=== PATIENT | male | born 1995 | race Caucasian/White ===

== ENCOUNTER 2024-09-19 10:26 | Outpatient (AMB) | payer BC, SELFPAY ==
--- NOTE | 2024-09-19 10:27 | A.OFFPC_ITS ---
Vital Signs 09/19/24 10:30 Height 5 ft 9 in Weight 193 lb BMI 28.5 BP 134/82 Respiration 14 Pulse 72 Pulse Source Pulse Oximeter Temp 97.9 F Temp Source Temporal Artery Scan Pulse Oximetry (%) 99 Oxygen Delivery Method Room Air Intake Visit Reasons: Establish Care Wall Attendant Required: No Accompanied by: Self / Same As Patient Allergies No Known Allergies Allergy (Unverified 09/19/24 10:48) Medication List - Last Reconciled 09/19/24 by Magaly Reynolds PA-C No Known Home Meds Tobacco use date assessed: 09/19/24 Dental Screening Dental Screen Date: 09/19/24 Did you have a dental visit in the last 12 months?: Yes Did you have a dental problem in the last 6 months where you did not have access to dental care?: No Was dental information given to patient?: Patient has dentist HPI Establish Care HPI0 Details The patient is a 29-year-old male presenting to establish care with a new primary care provider and would like to discuss bilateral knee pain. The p atient reports experiencing bilateral knee pain from a young age, which worsens when climbing stairs, presenting as a burning sensation. 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 He recalls previous imaging in high school with a contusion diagnosis but denies any traumas, swelling, or sounds in the knees. In addition to knee symptoms, the patient feels constantly fatigued despite variable sleep duration over the past year. He has not engaged in recent blood work. The patient has a long-standing history of anxiety linked to childhood experiences of bullying, which he self-manages with marijuana edibles to avoid side effects experienced with previous medications. 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 - Family: with a and a 1 3-year-old child. - Tobacco: Non-smoker. - Substance Use: Uses marijuana edibles for anxiety management. - Stressors: Managing a at home and long-standing anxiety due to childhood bullying. [facility] Medical History (Updated 09/19/24 @ 11:09 by Maglay Reynolds PA-C) Overweight with body mass index (BMI) of 28 to 28.9 in adult Anxiety Fatigue Establishing care with new doctor, encounter for Bilateral knee pain Family History Father No problems noted. Mother No problems noted. Social History Housing: House Alcohol intake: current Alcohol intake frequency: holidays/special occasions only Patient Tobacco Use Status: Never used Tobacco Substance Use Type: Marijuana service: No Current occupational status: employed Cognitive needs: No Hearing needs: No Vision needs: No Questionnaire PHQ-9 Over the last 2 weeks, how often have you been bothered by any of the following problems? 1. Little interest or pleasure in doing things: not at all 2. Feeling down, depressed, or hopeless: not at all 3. Trouble falling or staying asleep, or sleeping too much: not at all 4. Feeling tired or having little energy: not at all 5. Poor appetite or overeating: not at all 6. Feeling bad about yourself - or that you are a failure or have let yourself or your family down: not at all 7. Trouble concentrating on things, such as reading the newspaper or watching television: not at all 8. Moving or speaking so slowly that other people could have noticed. Or the opposite - being so fidgety or restless that you have been moving around a lot more than usual: not at all 9. Thoughts that you would be better off or of hurting yourself in some w ay: not at all Total score: 0 Depression Screening Interpretation: Negative Depression Screening Done: Yes 77517 - PHQ-9 Billing: Yes Source: Developed by Drs. Jasmeet Lemons, Yolette Gibbs, Constantine Dougherty and colleagues, with an educational denise from [employer]. Thrive Questionnaire Date Thrive assessed: 09/19/24 I am a: Patient What is your living situation today?: I have a steady place to live Within the past 12 months, did the food you bought not last and you didn't have the money to get more?: Never true Within the past 12 months, did you worry whether your food would run out before you got money to buy more?: Never true Do you have trouble paying for medicines?: No Do you have trouble getting transportation to medical appointments?: No Do you have trouble paying your heating and electricity bill?: No Do you have trouble taking care of your child, family member or friend?: No Do you have trouble with day-to-day activities such as bathing, preparing meals, shopping, managing finances, etc.?: No Are you currently unemployed and looking for a job?: No Are you interested in more education?: No Please select the resources that you would like help with: None THRIVE Score: 0 AUDIT C Alcohol Use Questionnaire (AUDIT-C) 1. How often do you have a drink containing alcohol?: Monthly or less 2. How many drinks containing alcohol do you have on a typical day when you are drinking?: 1 or 2 3. How often do you have six or more drinks on one occasion?: Never Total Score: 1 Score Reviewed/Action Taken: No GAETANO-7 AMB Questionnaire GAETANO-7 Date GAETANO - 7 assessed: 09/19/24 Feeling nervous, anxious, or on edge: 3 = Nearly every day Not being able to stop or control worryin = Several days Worrying too much about different things: 3 = Nearly every day Trouble relaxin = More than half the days Being so restless that it is hard to sit still: 0 = Not at all Becoming easily annoyed or irritable: 3 = Nearly every day Feeling afraid as if something awful might happen: 0 = Not at all Total GAETANO-7 score (0-4 normal; 5-9 mild; 10-14 moderate; 15-21 severe): 12 Source: Developed by Drs. Jasmeet Lemons, Yolette Gibbs, Constantine Dougherty and colleagues, with an educational denise from [employer]. GAETANO-7 Assessment Billing GAETANO-7 Assessment Tool: GAETANO-7 Assessment 21955 Review of Systems Const Details: - Musculoskeletal: Reports bilateral knee pain with burning and sharp sensations, no swelling, redness, or crackling noises reported. - General: Reports fatigue and persistent tiredness. - Psychological: Reports anxiety; denies suicidal ideation. - Gastrointestinal: Denies chronic abdominal pain, black or bloody stools, and significant weight changes. Physical exam (Primary Care) Vital Signs: Last Vital Signs Temp 97.9 F 09/19/24 10:30 Pulse 72 09/19/24 10:30 Resp 14 09/19/24 10:30 BP 134/82 09/19/24 10:30 Pulse Ox 99 09/19/24 10:30 Oxygen Delivery Method Room Air 09/19/24 10:30 Care Plan Goal for BP management: <140/90 at Goal BMI result Body Mass Index 28.5 BMI Assessment/Plan discussion: High BMI High, discussed plan: lifestyle, weight reduction, dietary, physical activity and alcohol moderation Tobacco/Smoking Status: Tobacco use Status Tobacco use date assessed 09/19/24 09/19/24 10:30 Patient Tobacco Use Status Never used Tobacco 09/19/24 10:33 PHQ-9: PHQ-9 Score PHQ-9: Total score 0 09/19/24 10:30 Depression Screening Interpretation: Negative Thrive Assessment: Date of Thrive Assessment Date Thrive assessed 09/19/24 09/19/24 10:30 Const Other: Appearance: Alert. Oriented X3. No acute distress. Head: Normal external exam. Normocephalic. Atraumatic. Eyes: Pupils are equal, round, and reactive to light. Extraocular movements intact. Conjunctiva and sclera normal. Eyelids normal. Ears: External auditory canal normal. Tympanic membranes normal. Throat: Pharynx normal. Uvula midline. Moist mucous membranes. Neck: Normal inspection. Neck supple. Full range of motion. No adenopathy. Thyroid Normal. No meningeal signs. No neck mass noted. Cardiovascular: Normal heart rate and rhythm. Heart sound normal. No murmurs noted. Pulses normal throughout. Respiratory: No respiratory distress. Painless inspiration. Breath sounds normal. No wheezes/rales/rhonchi noted. Chest nontender. No accessory muscle usage noted or decreased air movement noted. Abdomen: Soft and nontender. Bowel sounds normal in all 4 quadrants. No distention noted. No organomegaly noted. No visible injury noted. Back: No costovertebral angle tenderness. Full range of motion noted. Skin: Skin warm and dry. Normal skin color. Normal skin turgor. No rashes/les ions/lacerations noted. Extremities: No lower extremity edema. Extremities exhibit normal range of motion. Patient reports bilateral knee pain with sharp pains, especially when walking upstairs. No crackling or noises reported in the knees. Neuro: Oriented X 3. No motor deficit. No sensory deficit. Reflexes normal. Patient reports feeling fatigued and tired all the time, regardless of sleep. Reports anxiety, but no current medication. No thoughts of self-harm. Coding Level of Care Code New Pt Level 4 (54295) Complex EM visit Add On G2211 Diagnoses Establishing care with new doctor, encounter for Z76.89 Bilateral knee pain M25.561; M25.562 Fatigue R53.83 Anxiety F41.9 Overweight with body mass index (BMI) of 28 to 28.9 in adult E66.3; Z68.28 Additional Codes PHQ-9 - 80011 - PHQ-9 Billing: Yes ([id number]) GAETANO-7 Assessment Billing - GAETANO-7 Assessment Tool: GAETANO-7 Assessment 05015 ([id number]) Assessment & Plan Assessment & Plan (1) Establishing care with new doctor, encounter for: Code(s): Z76.89 - Persons encountering health services in other specified circumstances Category: Medical (2) Bilateral knee pain: Code(s): M25.561 - Pain in right knee; M25.562 - Pain in left knee Category: Medical Plan: Bilateral knee x-rays are planned to assist in diagnosis, accompanied by a possible orthopedic referral. Meloxicam is prescribed for inflammation management. (3) Fatigue: Code(s): R53.83 - Other fatigue Category: Medical Plan: Comprehensive blood work is ordered to evaluate for metabolic or nutritional imbalances that might explain fatigue. (4) Anxiety: Code(s): F41.9 - Anxiety disorder, unspecified Category: Medical Plan: Referral to psychiatry is made for evaluating medication options and a continued focus on therapy allows for comprehensive management. (5) Overweight with body mass index (BMI) of 28 to 28.9 in adult: Code(s): E66.3 - Overweight; Z68.28 - Body mass index [BMI] 28.0-28.9, adult Category: Medical Plan: Patient to improve diet and exercise regimen. Condition is chronic and stable will continue to monitor. Plan Plan Patient was informed and verbally consented to the use of an ambient scribe for clinic note documentation during this visit. 1. Knee Pain Bilateral knee x-rays are planned to assist in diagnosis, accompanied by a possible orthopedic referral. Meloxicam is prescribed for inflammation management. 2. Fatigue Comprehensive blood work is ordered to evaluate for metabolic or nutritional imbalances that might explain fatigue. 3. Anxiety Referral to psychiatry is made for evaluating medication options and a continued focus on therapy allows for comprehensive management. I discussed with the patient the concerns regarding his knee pain and the potential for inflammation as indicated by his description of symptoms. We agreed on obtaining knee X-rays and considering further referral based on those findings. For his fatigue, a full blood workup including thyroid and testosterone levels was ordered to rule out metabolic or nutritional deficiencies. Regarding anxiety, I proposed referral to psychiatry for a more comprehensive evaluation of treatment options, especially given his concern about side effects from past medications. I advised the patient of the potential delay in obtaining psychiatric services and reiterated the importance of continued therapy. We discussed the use of meloxicam for inflammation and emphasized the need for fasting prior to blood work. Regular follow-up was advis ed to monitor symptoms and evaluate test outcomes. Orders: Orders XR Knee Javier 4V Today M25.561 - Pain in right knee, M25.562 - Pain in left knee, Z76.89 - Persons encountering health services in other specified circumstances C Reactive Protein Today Z00.00 - Encounter for general adult medical examination without abnormal findings Hemoglobin A1c Today Z00.00 - Encounter for general adult medical examination without abnormal findings PSA,Total (Free>4and<10) Today Z00.00 - Encounter for general adult medical examination without abnormal findings TSH reflex Free T4 Today Z00.00 - Encounter for general adult medical examination without abnormal findings Magnesium Today Z00.00 - Encounter for general adult medical examination without abnormal findings DHEA Sulfate Today Z00.00 - Encounter for general adult medical examination without abnormal findings Complete Blood Count Auto Diff Today Z00.00 - Encounter for general adult medical examination without abnormal findings Comprehensive Mears. Panel Fast Today Z00.00 - Encounter for general adult medical examination without abnormal findings Lipid Panel Today Z00.00 - Encounter for general adult medical examination without abnormal findings Liver Panel Today Z00.00 - Encounter for general adult medical examination without abnormal findings Vitamin B12 and Folate Today Z00.00 - Encounter for general adult medical examination without abnormal findings Vitamin D 25-OH Total Today Z00.00 - Encounter for general adult medical examination without abnormal findings Testosterone, Total Today Z00.00 - Encounter for general adult medical examination without abnormal findings Testosterone, Free/Total Today Z00.00 - Encounter for general adult medical ex amination without abnormal findings Dihydrotestosterone Today Z00.00 - Encounter for general adult medical examination without abnormal findings Referrals Psychiatry Referral F32.A - Depression, unspecified Medications: New meloxicam 15 mg PO DAILY 60 tabs 1RF Patient Instructions: - Get X-ray of both knees as advised today. - Schedule and complete fasting blood work as soon as possible. - Take meloxicam daily as prescribed for knee pain. - Wait for the office call for test results and follow-ups. - Contact the office if you experience worsening pain or any new symptoms. - Continue current therapy and await appointment with psychiatry. - Visit or call us for any acute health concerns.
[2024-09-19 10:30] VITALS: BP 134/82; PULSE 72; RESP 14; TEMP 36.6; O2SAT 99; BMI 28.5
== END 2024-09-19 10:56 | disposition home or self-care (01) ==
LOC: HO.HMCSH 10:26
PROVIDERS: PCP Physician Assistant Medical; Visit Provider Physician Assistant Medical
DX: Z76.89 Persons encountering health services in other specified circumstances (principal); M25.561 Pain in right knee; M25.562 Pain in left knee; R53.83 Other fatigue; F41.9 Anxiety disorder, unspecified; E66.3 Overweight; Z68.28 Body mass index [BMI] 28.0-28.9, adult

== ENCOUNTER 2024-09-19 10:26 | Outpatient (REF) | payer BC, SELFPAY ==
--- NOTE | ~2024-09-19 | XR_ITS ---
XR KNEE JAVIER 3V HISTORY: Bilateral knee pain. COMPARISON: None. TECHNIQUE: AP view bilateral knees standing, lateral and oblique views bilateral knees. FINDINGS: RIGHT KNEE: No fracture, dislocation, or suspicious bone lesion. Joint spaces are normal in all 3 compartments. No evidence of joint effusion. Soft tissues appear normal. LEFT KNEE: No fracture, dislocation, or suspicious bone lesion. Joint spaces are normal in all 3 compartments. No evidence of joint effusion. Soft tissues appear normal. XR/XR Knee Javier 4V IMPRESSION: RIGHT KNEE: 1. Normal right knee. LEFT KNEE: 1. Normal left knee. Electronically signed by: Dav Lynn MD 09/19/2024 01:23 PM EDT
== END 2024-09-19 10:27 | disposition home or self-care (01) ==
LOC: HO.HMGCX 10:26
PROVIDERS: PCP Physician Assistant Medical; Visit Provider Physician Assistant Medical
DX: Z76.89 Persons encountering health services in other specified circumstances (principal); M25.561 Pain in right knee; M25.562 Pain in left knee; R53.83 Other fatigue; F41.9 Anxiety disorder, unspecified; E66.3 Overweight; Z68.28 Body mass index [BMI] 28.0-28.9, adult
CPT/HCPCS: 73564; 96127

== ENCOUNTER → 2024-09-19 11:15 | Outpatient (BNV) | payer BC, SELFPAY | PROVIDERS: PCP Physician Assistant Medical; Visit Provider Radiology Diagnostic Radiology | DX: M17.0 Bilateral primary osteoarthritis of knee (principal) | CPT/HCPCS: 73564 ==

== ENCOUNTER 2024-12-22 08:23 | Outpatient (AMB) | payer BC, SELFPAY ==
[2024-12-22 08:35] VITALS: BMI 28.5
--- NOTE | 2024-12-22 08:35 | MHC.OFFVIS ---
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 X-rays were obtained and he was referred to orthopedics by his PCP. Patient reports that he has had pain ongoing for quite some time now. He states that he has had pain as along as he can remember. Increased pain with climbing stairs , and staying in certain positions for prolonged periods of time. His pain is described as a sharp pain. The pain that he feels is temporary, it only last for a few minutes at a time. Denies previous treatments or bracing. 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 He denies specific injury states he has had pain that has been off and on since he was a teenager. He states he did play sports as a child and had some discomfort with his knee pain but did not have any intervention no treatment such as physical therapy. 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 He denies any catching or locking symptoms. No instability. [facility] Medical History (Updated 12/22/24 @ 08:53 by Go Ayala PA-C) Overweight with body mass index (BMI) of 28 to 28.9 in adult Anxiety Fatigue Establishing care with new doctor, encounter for Bilateral knee pain Surgical History (Updated 12/22/24 @ 08:39 by Esther Smith CMA) S/P pilonidal cyst excision (~2019) Family History Father No problems noted. Mother No problems noted. Social History Housing: House Alcohol intake: current Alcohol intake frequency: holidays/special occasions only Patient Tobacco Use Status: Never used Tobacco Substance Use Type: Marijuana service: No Current occupational status: employed Cognitive needs: No Hearing needs: No Vision needs: No Review of Systems Const Reports as per HPI Physical Exam Vital Signs: BMI result Body Mass Index 28.5 Const General: cooperative and no acute distress Orientation/consciousness: patient oriented x3 Resp Effort & Inspection: normal respiratory effort and able to speak in complete sentences Cardio Peripheral pulses: Peripheral pulses 2+ throughout Neuro General: patient oriented x3 Extrem Other: Bilateral knees normal to inspection. No erythema or joint effusion present he has full range of motion with crepitus laterally. No significant tenderness to palpation. Negative patellar grind. Calf is supple and nontender neurovascularly intact. Results Reviewed Results Reviewed: X-rays of bilateral knees obtained in the office today negative for any acute or chronic abnormalities Assessment & Plan Assessment & Plan (1) Chronic patellofemoral pain of both knees: Code(s): M25.561 - Pain in right knee; M25.562 - Pain in left knee; G89.29 - Other chronic pain Category: Medical Plan: We discussed options today which includes physical therapy and modification of activity. An order was placed for physical therapy and he will contact the facility to make an appointment. He was also fit for bilateral Genumed knee braces. I discussed anti-inflammatory use for occasional flare-ups. If symptoms persist or worsen he will contact our office otherwise follow up as needed. Orders: Orders XR Knee Javier 1or 2V Today M25.561 - Pain in right knee, M25.562 - Pain in left knee PT Evaluation and Treatment Today G89.29 - Other chronic pain, M25.561 - Pain in right knee, M25.562 - Pain in left knee Coding Level of Care Code New Pt Level 3 (42028) Complex EM visit Add On G2211 Diagnoses Chronic patellofemoral pain of both knees M25.561; M25.562; G89.29
--- OUTSIDE RECORDS SUMMARY | 2024-12-22 08:49 | XMS_ITS | Clinical Summary ---
Author Organization [facility] Address [address] [place] [id number] Phone Care Team Providers Care Barrel Assembler Name Role Phone Unavailable Primary Care Provider Unavailabl e Immunizations Immunization Administration Dates Next Due Tdap 10/19/2005 Family History Relation Name Status Comments Brother 1 Alive Brother: Alive and well, Alive and well Brother 2 Alive Brother: Alive and well, Alive and well Father Alive Father: Alive a nd well Mother Alive Mother: Alive a nd well Social History Tobacco Use Types Packs/Day Years Used Date Smoking Tobacco: Never Assessed Sex and Gender Information Value Date Recorded Sex Assigned at Not on file Legal Sex Male 4:26 PM EDT Gender Identity Not on file Sexual Orientation Not on file Plan of Treatment Health Maintenance Due Date Last Done Comments MMR Vaccines (1 of 1 - Stand darien series) 1994 Varicella Vaccines (1 of 2 - 13+ 2-dose series) 2006 Hepatitis B Vaccines (1 of 3 - 19+ 3-dose series) 02/17/2012 DTaP,Tdap,and Td Vaccines (2 - Td or Tdap) 10/20/2015 10/19/2005 HPV Vaccines (1 - 3-dose SCD M series) 02/17/2020 COVID-19 Vaccine ( - 2023-2 5 season) 2023 Influenza Vaccines (#1) 2024 HIB Vaccines Aged Out No longer eligi ble based on patient's age to complete this topic Hepatitis A Vaccines Aged Out No long er eligible based on patient's age to complete this topic IPV Vaccines Aged Out No longer eligi ble based on patient's age to complete this topic Men B Vaccine Aged Out No longer elig ible based on patient's age to complete this topic Meningococcal Vaccine Aged Out No monse montse eligible based on patient's age to complete this topic Pneumococcal Vaccine Aged Out No long er eligible based on patient's age to complete this topic
== END 2024-12-22 09:02 | disposition home or self-care (01) ==
LOC: HO.HOS 08:24
PROVIDERS: PCP Physician Assistant Medical; Visit Provider Physician Assistant
DX: M25.561 Pain in right knee (principal); M25.562 Pain in left knee; G89.29 Other chronic pain
CPT/HCPCS: 99203

== ENCOUNTER → 2024-12-22 08:25 | Outpatient (BNV) | payer BC, SELFPAY | PROVIDERS: Visit Provider Radiology Diagnostic Radiology | DX: M25.561 Pain in right knee (principal); M25.562 Pain in left knee | CPT/HCPCS: 73560 ==

== ENCOUNTER 2024-12-22 11:26 | Outpatient (REF) | payer BC, SELFPAY ==
--- NOTE | ~2024-12-22 | XR_ITS ---
XR KNEE JAVIER 1V HISTORY: Right knee pain. COMPARISON: 09/19/2024. TECHNIQUE: [place] view of each knee. FINDINGS: RIGHT KNEE: No fracture, dislocation, or suspicious bone lesion. Patellofemoral alignment is normal. Normal patellar alignment. No abnormal patellar tilt. Soft tissues appear normal. LEFT KNEE: No fracture, dislocation, or suspicious bone lesion. Patellofemoral alignment is normal. Normal patellar alignment. No abnormal patellar tilt. Soft tissues appear normal. XR/XR Knee Javier 1or 2V IMPRESSION: 1. Normal bilateral patellofemoral views. Electronically signed by: Dav Lynn MD 12/22/2024 09:21 AM EDT
--- OUTSIDE RECORDS SUMMARY | 2024-12-23 12:23 | XMS_ITS | Encounter Summary ---
Author Organization [facility] Address [address] [place] [id number] Phone Care Team Providers Care Spray Pilot Name Role Phone Juhi Gamble NP Primary Care Provider Shelbi riggins Encounter Details Date Type Department Care Team (Late st Contact Info) Description 12/14/2016 Conversion Encounter [facility] - [address] [id number] Social History Tobacco Use Types Packs/Day Years Used Date Smoking Tobacco: Never Assessed Sex and Gender Information Value Date Recorded Sex Assigned at Not on file Legal Sex Male 4:26 PM EDT Gender Identity Not on file Sexual Orientation Not on file documented as of this encounter Plan of Treatment Not on file documented as of this encounter Visit Diagnoses Not on filedocumented in this encounter Care Teams Spray Pilot Relationship Specialty Start Date End Date Juhi Gamble NP PCP - General 12/08/16 08/08/22 documented as of this encounter
--- OUTSIDE RECORDS SUMMARY | 2024-12-23 12:23 | XMS_ITS | Clinical Summary ---
Author Organization [facility] Address [address] [place] [id number] Phone Care Team Providers Care Flight Nurse Name Role Phone Unavailable Primary Care Provider [...]
== END 2024-12-22 11:27 | disposition home or self-care (01) ==
LOC: HO.HOSX 11:26
PROVIDERS: Visit Provider Physician Assistant
DX: M25.561 Pain in right knee (principal); M25.562 Pain in left knee; G89.29 Other chronic pain
CPT/HCPCS: 73560

== ENCOUNTER 2025-03-24 09:15 | Outpatient (AMB) | payer BC, SELFPAY ==
--- NOTE | 2025-03-24 09:19 | MHC.PC.OV ---
Vital Signs 03/24/25 09:21 Height 5 ft 9 in Weight 197 lb 0.2 oz BMI 29.1 BP 114/57 L Blood Pressure Location Rt brachial Pulse 70 Pulse Source Pulse Oximeter Temp 98.1 F Pulse Oximetry (%) 99 Intake Visit Reasons: 6 month f/u Intake Note: Not sleeping well wakes up because arms are falling a sleep so he doesn't fall asleep until the numbness goes away going on for about 6 months. Allergies No Known Allergies Allergy (Verified 03/24/25 09:42) Medication List - Last Reconciled 03/24/25 by Magaly Reynolds PA-C No Known Home Meds Tobacco use date assessed: 09/19/24 Dental Screening Dental Screen Date: 03/24/25 Did you have a dental visit in the last 12 months?: Yes Did you have a dental problem in the last 6 months where you did not have access to dental care?: No Was dental information given to patient?: Patient has dentist HPI HPI Comments History of Present Illness Details History of Present Illness The patient is a 30 year old individual presenting for a six-month follow-up, which was converted into an annual physical examination. The patient's last physical was several years ago. The patient has a history of chronic patellofemoral pain in both knees, for which the patient saw an orthopedist. X-rays showed that the pain is caused by the patient's bones rubbing together. The patient manages this with knee braces worn at work or during long walks and uses anti-inflammatory medications as needed. The patient reports new symptoms of waking up with both arms falling asleep, which has been occurring for at least six months. The patient reports ongoing fatigue and always feels tired, even upon waking, believing it may be due to poor sleep quality. For anxiety, the patient sees a therapist once or twice a month. The patient previously tried medications but stopped due to side effects and reports that smoking a small amount of cannabis is helpful. Past surgical history includes LASIK surgery on both eyes a couple of years ago. The patient reports no known family history of colon or breast cancer. Social History - Employment: The patient works at the [employer], a job that requires being on the patient's feet. - Substance Use: The patient reports smoking cannabis [facility] Medical History (Updated 03/24/25 @ 10:01 by Magaly Reynolds PA-C) Healthcare maintenance Annual physical exam Carpal tunnel syndrome, bilateral Sleep apnea Overweight with body mass index (BMI) of 28 to 28.9 in adult Anxiety Fatigue Establishing care with new doctor, encounter for Bilateral knee pain Surgical History Hx of LASIK S/P pilonidal cyst excision (~2020) Family History Father No problems noted. Mother No problems noted. Social History Housing: House Alcohol intake: current Alcohol intake frequency: holidays/special occasions only Patient Tobacco Use Status: Never used Tobacco Substance Use Type: Marijuana service: No Current occupational status: employed Cognitive needs: No Hearing needs: No Vision needs: No Questionnaire PHQ-9 Over the last 2 weeks, how often have you been bothered by any of the following problems? 1. Little interest or pleasure in doing things: not at all 2. Feeling down, depressed, or hopeless: not at all 3. Trouble falling or staying asleep, or sleeping too much: not at all 4. Feeling tired or having little energy: not at all 5. Poor appetite or overeating: not at all 6. Feeling bad about yourself - or that you are a failure or have let yourself or your family down: not at all 7. Trouble concentrating on things, such as reading the newspaper or watching television: not at all 8. Moving or speaking so slowly that other people could have noticed. Or the opposite - being so fidgety or restless that you have been moving around a lot more than usual: not at all 9. Thoughts that you would be better off or of hurting yourself in some way: not at all Total score: 0 Depression Screening Interpretation: Negative Depression Screening Done: Yes 05121 - PHQ-9 Billing: Yes Source: Developed by Drs. Jasmeet Lemons, Yolette Gibbs, Constantine Dougherty and colleagues, with an educational denise from [employer]. Thrive Questionnaire Date Thrive assessed: 09/19/24 I am a: Patient What is your living situation today?: I have a steady place to live Within the past 12 months, did the food you bought not last and you didn't have the money to get more?: Never true Within the past 12 months, did you worry whether your food would run out before you got money to buy more?: Never true Do you have trouble paying for medicines?: No Do you have trouble getting transportation to medical appointments?: No Do you have trouble paying your heating and electricity bill?: No Do you have trouble taking care of your child, family member or friend?: No Do you have trouble with day-to-day activities such as bathing, preparing meals, shopping, managing finances, etc.?: No Are you currently unemployed and looking for a job?: No Are you interested in more education?: No Please select the resources that you would like help with: None THRIVE Score: 0 AUDIT C Alcohol Use Questionnaire (AUDIT-C) 1. How often do you have a drink containing alcohol?: Monthly or less 2. How many drinks containing alcohol do you have on a typical day when you are drinking?: 1 or 2 3. How often do you have six or more drinks on one occasion?: Never Total Score: 1 Score Reviewed/Action Taken: No GAETANO-7 AMB Questionnaire GAETANO-7 Date GAETANO - 7 assessed: 09/19/24 Feeling nervous, anxious, or on edge: 3 = Nearly every day Not being able to stop or control worryin = Several days Worrying too much about different things: 3 = Nearly every day Trouble relaxin = More than half the days Being so restless that it is hard to sit still: 0 = Not at all Becoming easily annoyed or irritable: 3 = Nearly every day Feeling afraid as if something awful might happen: 0 = Not at all Total GAETANO-7 score (0-4 normal; 5-9 mild; 10-14 moderate; 15-21 severe): 12 Source: Developed by Drs. Jasmeet Lemons, Yolette Gibbs, Constantine Dougherty and colleagues, with an educational denise from [employer]. GAETANO-7 Assessment Billing GAETANO-7 Assessment Tool: GAETANO-7 Assessment 92682 Review of Systems Narrative Review of Systems - Constitutional: Reports persistent fatigue. - Neurological: Reports waking from sleep with bilateral hand numbness for the past six months. - Musculoskeletal: Reports chronic bilateral knee pain. - Psychiatric: Reports anxiety, which is managed with therapy. - Cardiovascular: Denies chest pain or shortness of breath on exertion or when lying flat. - Gastrointestinal: Denies bloody stools, unintentional weight loss, and persistent abdominal pain. Reports normal bowel movements. - HEENT: Denies trouble hearing. Denies trouble with vision, noting prior LASIK surgery. - Genitourinary: Denies flank pain. Const All systems reviewed & are unremarkable except as noted in HPI and below Physical exam (Primary Care) Vital Signs: Last Vital Signs Temp 98.1 F 03/24/25 09:21 Pulse 70 03/24/25 09:21 BP 114/57 L 03/24/25 09:21 Pulse Ox 99 03/24/25 09:21 Care Plan Goal for BP management: <140/90 at Goal BMI result Body Mass Index 29.1 BMI Assessment/Plan discussion: High BMI High, discussed plan: lifestyle, weight reduction, dietary, physical activity, alcohol moderation and other Tobacco/Smoking Status: Tobacco use Status Tobacco use date assessed 09/19/24 03/24/25 09:29 Patient Tobacco Use Status Never used Tobacco 03/24/25 09:29 PHQ-9: PHQ-9 Score PHQ-9: Total score 0 03/24/25 09:29 Depression Screening Interpretation: Negative Thrive Assessment: Date of Thrive Assessment Date Thrive assessed 09/19/24 03/24/25 09:29 Narrative Physical Exam Appearance: Alert. Oriented X3. No acute distress. Head: Normal external exam. Normocephalic. Atraumatic. Eyes: Pupils are equal, round, and reactive to light. Extraocular movements intact. Conjunctiva and sclera normal. Eyelids normal. Ears: External auditory canal normal. Tympanic membranes normal. Throat: Pharynx normal. Uvula midline. Moist mucous membranes. Neck: Normal inspection. Neck supple. Full range of motion. No adenopathy. Thyroid Normal. No meningeal signs. No neck mass noted. Cardiovascular: Normal heart rate and rhythm. Heart sound normal. No murmurs noted. Pulses normal throughout. Respiratory: No respiratory distress. Painless inspiration. Breath sounds normal. No wheezes/rales/rhonchi noted. Chest nontender. No accessory muscle usage noted or decreased air movement noted. Abdomen: Soft and nontender. Bowel sounds normal in all 4 quadrants. No distention noted. No organomegaly noted. No visible injury noted. Back: No costovertebral angle tenderness. Full range of motion noted. Skin: Skin warm and dry. Normal skin color. Normal skin turgor. No rashes/lesions/lacerations noted. Extremities: No lower extremity edema. Extremities exhibit normal range of motion. Extremities nontender. Neuro: Oriented X 3. No motor deficit. No sensory deficit. Reflexes normal. Positive Phalen's test and Tinel's sign indicating possible carpal tunnel syndrome. Office Procedures Flu Questionnaire Does the patient have a severe egg allergy?: No Does the patient have severe life threatening allergies?: No Does the patient have a fever or illness today?: No Has the patient ever had Guillain-[place] Syndrome?: No Has the patient ever had any past reaction to a flu shot?: No Immunizations Fluarix [id number] (PF) 45 mcg (15 mcg x 3)/0.5 mL IM syringe Performing Provider: Magaly Reynolds PA-C [facility] Documented (not given) by: Dori Brown on 03/24/25 09:30 Dose Route Admin Location Dispensed Lot Number Expiration Date [facility] [place] Shipping Receiving Manager 0.5 mL IM mL VIS Given Date VIS Provided VIS Publication Date 03/24/25 Single Vaccine 24 Eligibility Eligibility Date Funding Source Coding Level of Care Code Est Pt Level 4 (05180) Est Pt Prev Care 18-39y(60849) Diagnoses Annual physical exam Z00.00 Carpal tunnel syndrome, bilateral G56.03 Fatigue R53.83 Chronic patellofemoral pain of both knees M25.561; M25.562; G89.29 Anxiety F41.9 Healthcare maintenance Z00.00 Additional Codes GAETANO-7 Assessment Billing - GAETANO-7 Assessment Tool: GAETANO-7 Assessment 21596 ([id number]) PHQ-9 - 46617 - PHQ-9 Billing: Yes ([id number]) Assessment & Plan Assessment & Plan (1) Annual physical exam: Code(s): Z00.00 - Encounter for general adult medical examination without abnormal findings Category: Medical (2) Carpal tunnel syndrome, bilateral: Code(s): G56.03 - Carpal tunnel syndrome, bilateral upper limbs Category: Medical Plan: The patient's symptoms of waking with bilateral hand numbness, along with a positive Phalen's test, are suggestive of carpal tunnel syndrome. A referral will be made to physical therapy. Recommended conservative management includes wearing wrist splints at night and using anti-inflammatory medications as needed. If symptoms do not improve with physical therapy, a referral to orthopedics can be made for further evaluation. (3) Fatigue: Code(s): R53.83 - Other fatigue Category: Medical Plan: The patient's persistent fatigue will be investigated with a home sleep study to assess for sleep apnea. Comprehensive fasting lab work, including CBC, CMP, testosterone, HgbA1c, lipid panel, magnesium, PSA, vitamin B12, and vitamin D, was ordered to rule out other underlying causes. A urinalysis will also be performed. (4) Chronic patellofemoral pain of both knees: Code(s): M25.561 - Pain in right knee; M25.562 - Pain in left knee; G89.29 - Other chronic pain Category: Medical Plan: The patient should continue current management for chronic knee pain. This includes wearing knee braces during periods of prolonged walking and using anti-inflammatory medications as needed. Follow-up with orthopedics is on an as-needed basis. (5) Anxiety: Code(s): F41.9 - Anxiety disorder, unspecified Category: Medical Plan: The patient's anxiety appears adequately managed with current therapy. The patient will continue with the current therapist, as this is found to be helpful. The patient prefers to avoid medications due to past side effects. (6) Healthcare maintenance: Code(s): Z00.00 - Encounter for general adult medical examination without abnormal findings Category: Medical Plan: Today's visit was converted to an annual physical exam. The patient was instructed to complete fasting blood work and a urinalysis, with specific instructions provided for the testosterone test. A follow-up is scheduled in six months, though the patient will be contacted sooner if any lab results are significantly abnormal. Plan Plan Patient was informed and verbally consented to the use of an ambient scribe for clinic note documentation during this visit. 1. Suspected Bilateral Carpal Tunnel Syndrome The patient's symptoms of waking with bilateral hand numbness, along with a positive Phalen's test, are suggestive of carpal tunnel syndrome. A referral will be made to physical therapy. Recommended conservative management includes wearing wrist splints at night and using anti-inflammatory medications as needed. If symptoms do not improve with physical therapy, a referral to orthopedics can be made for further evaluation. 2. Fatigue The patient's persistent fatigue will be investigated with a home sleep study to assess for sleep apnea. Comprehensive fasting lab work, including CBC, CMP, testosterone, HgbA1c, lipid panel, magnesium, PSA, vitamin B12, and vitamin D, was ordered to rule out other underlying causes. A urinalysis will also be performed. 3. Chronic Bilateral Patellofemoral Pain The patient should continue current management for chronic knee pain. This includes wearing knee braces during periods of prolonged walking and using anti-inflammatory medications as needed. Follow-up with orthopedics is on an as-needed basis. 4. Anxiety The patient's anxiety appears adequately managed with current therapy. The patient will continue with the current therapist, as this is found to be helpful. The patient prefers to avoid medications due to past side effects. 5. Health Maintenance Today's visit was converted to an annual physical exam. The patient was instructed to complete fasting blood work and a urinalysis, with specific instructions provided for the testosterone test. A follow-up is scheduled in six months, though the patient will be contacted sooner if any lab results are significantly abnormal. Discussion Notes I converted today's six-month follow-up to an annual physical exam since the patient has not had one in several years. We discussed the patient's new symptoms of bilateral hand numbness, which, based on the history and a positive Phalen's test, is likely carpal tunnel syndrome. I explained the plan to start with physical therapy and recommended home measures like wrist splints and shaking the hands upon waking. I mentioned that an orthopedic referral and potential surgery are options if conservative measures fail, but noted that surgical outcomes can be variable. Regarding the patient's persistent fatigue, I recommended a home sleep study to investigate for sleep apnea and ordered comprehensive lab work to rule out other causes. I provided specific instructions for the fasting blood tests, particularly the requirements for the testosterone level. We agreed that the patient would continue managing the chronic knee pain with the current strategies and that anxiety is well-managed with therapy, making a psychiatry referral unnecessary at this time. I informed the patient that I would call if any lab results are significantly abnormal and to otherwise return for a follow-up in six months. Orders: Orders RT home sleep study Today G47.30 - Sleep apnea, unspecified, R53.83 - Other fatigue PT Evaluation and Treatment Today G56.03 - Carpal tunnel syndrome, bilateral upper limbs UA CC w/rflx Micro + Cult Today Z00.00 - Encounter for general adult medical examination without abnormal findings Influenza [id number] Immunization Today Z23 - Encounter for immunization Medications: New Fluarix [id number] (PF) (flu vac ts (6mos up)-PF) 0.5 mL IM ONCE 0.5 mL 0RF NS Z23 - Encounter for immunization Patient Instructions: Patient Instructions - Please go for your blood work tomorrow morning. - You must fast for 10-12 hours beforehand, meaning nothing to eat or drink except water. - For the testosterone test, you must not have any sexual intercourse or perform any strenuous exercise for 24 hours before the blood draw. - Continue to wear your knee braces when you are at work or walking for long periods. - You may take movx-drt-yjoccdk anti-inflammatory medications like Motrin for your knee pain as needed. - You will receive a call to schedule a home sleep study to check for sleep apnea. - You will be referred to physical therapy for your hand numbness. - You can purchase wrist splints from a pharmacy to wear at night, which may help with the numbness. - Schedule a follow-up appointment for six months. - We will call you to come in sooner if any of your test results are abnormal.
[2025-03-24 09:21] VITALS: BP 114/57; PULSE 70; TEMP 36.7; O2SAT 99; BMI 29.1
--- OUTSIDE RECORDS SUMMARY | 2025-03-24 10:16 | XMS_ITS | Encounter Summary ---
Author Organization [facility] Address [address] [place] [phone] Phone Care Team Providers Care Ed Tech Name Role Phone Juhi Gamble NP Primary Care Provider Shelbi riggins Encounter Details Date Type Department Care Team (Late st Contact Info) Description 12/14/2016 Conversion Encounter [facility] - [address] [address] Social History Tobacco Use Types Packs/Day Years [...] on filedocumented in this encounter Care Teams Ed Tech Relationship Specialty Start Date End Date Juhi Gamble NP PCP - General 12/08/16 08/08/22 documented as of this encounter
--- OUTSIDE RECORDS SUMMARY | 2025-03-24 10:16 | XMS_ITS | Clinical Summary ---
Author Organization [facility] Address [address] [place] [id number] Phone Care Team Providers Care Ship Worker Name Role Phone Unavailable Primary Care Provider [...] (1 - 3-dose SCD M series) 02/17/2020 Influenza Vaccines (#1) 2024 COVID-19 Vaccine ( - 2024-2 6 season) 2024 HIB Vaccines Aged Out No longer [...]
== END 2025-03-24 09:57 | disposition home or self-care (01) ==
PROVIDERS: PCP Physician Assistant Medical; Visit Provider Physician Assistant Medical
DX: Z00.00 Encounter for general adult medical examination without abnormal findings (principal); G56.03 Carpal tunnel syndrome, bilateral upper limbs; R53.83 Other fatigue; M25.561 Pain in right knee; M25.562 Pain in left knee; G89.29 Other chronic pain; F41.9 Anxiety disorder, unspecified; Z23 Encounter for immunization

== ENCOUNTER → 2025-03-24 09:15 | Outpatient (BNVA) | payer BC, SELFPAY | PROVIDERS: PCP Physician Assistant Medical; Visit Provider Physician Assistant Medical | DX: Z00.00 Encounter for general adult medical examination without abnormal findings (principal); M25.561 Pain in right knee; M25.562 Pain in left knee; G56.03 Carpal tunnel syndrome, bilateral upper limbs; R53.83 Other fatigue; G89.29 Other chronic pain; F41.9 Anxiety disorder, unspecified; G47.30 Sleep apnea, unspecified; Z28.89 Immunization not carried out for other reason | CPT/HCPCS: 96127 ==

== ENCOUNTER 2025-04-09 10:47 | Outpatient (REF) | payer BC, SELFPAY ==
[2025-04-09 13:52] LABS: Appearance Urine Clear; Glucose Urine UA Negative (Negative); PH 7.5 (5.0-9.0); Specific Gravity - Urine 1.025 (1.005-1.025)
[2025-04-09 14:05] LABS: MANUAL DIFF FLAG NO
[2025-04-09 14:15] LABS: Hematocrit 45.9 % (42.0-52.0); Hemoglobin 15.5 g/dl (14.0-18.0); Imm Gran Abs Auto 0.00 X10*3/uL (0.00-0.03); Imm Gran Pct Auto 0.0 % (0.0-0.4); Lymphocytes Absolute Auto 1.5 X10*3/uL (1.2-4.9); Mean Corpuscular HGB Conc 33.8 g/dl (31.0-36.0); Mean Corpuscular Hemoglobin 28.2 pg (27.0-33.0); Mean Corpuscular Volume 83.5 fL (80.0-98.0); NRBC Abs Auto 0.000 X10*3/uL (0.0-0.012); NRBC Pct Auto 0.0 /100WBC (0.0-0.2); Platelet Count 198 X10*3/uL (160-400); Red Blood Count 5.50 X10*6/uL (4.60-5.80); White Blood Count 3.9 X10*3/uL (4.8-10.8)
[2025-04-09 14:41] LABS: Alanine Aminotransferase 18 U/L (0-40); Albumin Level 4.9 g/dL (3.5-5.0); Alkaline Phosphatase 73 U/L (39-117); Anion Gap 10 (12-20); Aspartate Amino Transferase 27 U/L (5-37); Blood Urea Nitrogen 12 mg/dL (9-16); Calcium 9.5 mg/dL (8.4-10.2); Carbon Dioxide 24 mmol/L (22-29); Chloride 110 mmol/L (96-108); Cholesterol 165 mg/dL (<200); Estimated Glomerular Filt Rate > 60; HDL Cholesterol 44 mg/dL (>40); Magnesium 2.0 mg/dL (1.6-2.6); Potassium 4.2 mmol/L (3.3-5.1); Sodium 140 mmol/L (135-145); Total Protein 7.3 g/dL (6.5-8.0); Triglycerides 48 mg/dL (<150)
[2025-04-09 14:52] LABS: PSA,Total (Free>4and<10) 0.79 ng/mL (0.00-4.00)
[2025-04-09 15:05] LABS: Folate 11.9 ng/mL (> or = 4.0); Vitamin B12 500 pg/mL (200-900)
[2025-04-09 15:36] LABS: Free T4 (Free Thyroxine) 0.92 ng/dL (0.71-1.85)
== END 2025-04-09 10:48 | disposition home or self-care (01) ==
LOC: HO.HMGCLDS 10:47
PROVIDERS: PCP Physician Assistant Medical; Visit Provider Physician Assistant Medical
DX: Z00.00 Encounter for general adult medical examination without abnormal findings (principal); Z13.6 Encounter for screening for cardiovascular disorders; Z13.1 Encounter for screening for diabetes mellitus; Z12.5 Encounter for screening for malignant neoplasm of prostate; Z13.0 Encounter for screening for diseases of the blood and blood-forming organs and certain disorders involving the immune mechanism; Z13.29 Encounter for screening for other suspected endocrine disorder
CPT/HCPCS: 36415; 80053; 80061; 80076; 81003; 82306; 82607; 82627; 82642; 82746; 83036; 83735; 84153; 84402; 84403; 84439; 84443; 85025; 86140